=== PATIENT | female | born 1960 | race Caucasian/White ===

== ENCOUNTER 2016-06-16 13:53 | Emergency (ER) | payer OTHER ==
[2016-06-16 14:16] VITALS: RESP 16
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
[2016-06-16 16:55] VITALS: BP 147/79; PULSE 80; TEMP 98.1; O2SAT 97
== END 2016-06-16 17:00 | disposition home or self-care (01) ==
LOC: CED 13:53
DX: S09.90XA Unspecified injury of head, initial encounter (principal); F07.81 Postconcussional syndrome; W22.8XXA Striking against or struck by other objects, initial encounter; Z87.891 Personal history of nicotine dependence; Y92.015 Private garage of single-family (private) house as the place of occurrence of the external cause
CPT/HCPCS: 70450-PO; 72125-PO; 99215-PO; G0463-PO

== ENCOUNTER 2016-08-29 18:55 | Emergency (ER) | payer OTHER ==
[2016-08-29 19:05] VITALS: BP 160/73; PULSE 116; RESP 16; TEMP 99.7; O2SAT 94
[2016-08-29] MEDS ORDERED: FAMOTIDINE 20 MG TAB PO ONE (20:29)
[2016-08-29] MEDS ORDERED: OSELTAMIVIR PHOSPHATE 75 MG CAP PO ONE (20:29)
[2016-08-29] MEDS ORDERED: HYDROCODONE/APAP 5/325 TAB PO ONE (20:33)
[2016-08-29] MEDS ORDERED: HYDROCOD/APAP 5/325 PREPACK#6 BTL TAKEHOME ONE (20:33)
--- NOTE | 2016-08-29 20:33 | UCPHY ---
H & P Time Seen by Provider: 08/29/16 20:15 Patient Type: Established HPI/ROS: HPI Flu-like symptoms. 55-year-old female by private vehicle with her . This patient complains of flu-like symptoms which include nasal congestion, dry intermittent cough, muscle aches and joint aches, fever, sore throat, intermittent dull gradual onset headache. Ongoing for 2 weeks now. She has seen her primary care physician twice over the span of time for this complaint. Most recently today. She has not been on Tamiflu. She was prescribed azithromycin this morning. A chest x-ray was not done. She is on clear as to why the azithromycin was prescribed. She presents to the urgent care [facility] complaining of continued symptoms. She also reports that she has had some heartburn which she describes as a dull ache in her epigastric area. She reports that this is better at the time of Urgent Care evaluation. ROS: Constitutional: As above, no chills. No weakness. Eyes: No discharge. No changes in vision. ENT: As. Respiratory: As above. No shortness of breath. Cardiac: No chest pain, no palpitations. Gastrointestinal: As above, no vomiting, no diarrhea. Genitourinary: No hematuria. No dysuria or increased frequency with urination. Musculoskeletal: As above Skin: No rashes. Neurological: No focal weakness or altered sensation. Past medical history: Bipolar, cholecystectomy, gastric bypass, orthopedic surgeries. Primary care physician is in this building. Social history: Nonsmoker. Here with her . Physical Exam: General Appearance: Alert, no distress. This patient is responding to questions appropriately and in full sentences. This patient appears well- hydrated and well-nourished. Eyes: Pupils equal and round no pallor or injection. No lid edema, erythema or injection. ENT, Mouth: Mucous membranes are moist. The pharyngeal tissues are unremarkable. No edema or swelling. No asymmetry suggestive of abscess. No erythema or exudates. Respiratory: There are no retractions, lungs are clear to auscultation with good air movement bilaterally. Cardiovascular: Regular rate and rhythm. No murmur. Gastrointestinal: Abdomen is soft and nontender on palpation, no masses, bowel sounds normal. No focal tenderness at McBurney's point. No James sign. Neurological: Motor sensory function is grossly intact. Cranial nerves are normal. Gait is normal. Skin: Warm and dry, no rashes. Musculoskeletal: Neck is supple and nontender. Extremities are symmetrical. All joints range without pain or impingement. Psychiatric: No agitation. No depression. Database: EKG: Imaging: Procedures: Emergency department course: Vital signs reviewed. She was borderline febrile and mildly tachycardic in triage. After my evaluation she was given 2 Vicodin, 20 mg of Pepcid and Tamiflu 75 mg. I discussed the indications for Tamiflu. She is well outside the window regarding her onset of symptoms. However her presentation is classic influenza. I discussed potential side effects of Tamiflu as well as the possible what unlikely benefits of this medication, she felt strongly about trying this medication. I do not see a reason for her to continue azithromycin so I told her to discontinue this antibiotic. I discussed placing an IV in doing blood work. She does not want this done at this time. She wants to go home with the above medications. Plan will be to have her return to the Urgent Care tomorrow when I am again working for re-evaluation. Immediate return to emergency department precautions reviewed with her. All of her questions were answered. She was discharged in good condition with her . Differential Diagnosis: The differential diagnosis on this patient includes but is not limited to influenza, viral syndrome. Bowel obstruction, other surgical etiology of abdominal pain, serious bacterial infection unlikely. This represents a partial list of diagnoses considered. These considerations are based on history , physical exam, past history, reassessment and diagnostic testing. Smoking Status: Former smoker Constitutional: Initial Vital Signs Temperature (C) 37.6 C 08/29/16 19:01 Heart Rate 116 H 08/29/16 19:01 Respiratory Rate 16 08/29/16 19:01 Blood Pressure 160/73 H 08/29/16 19:01 O2 Sat (%) 94 08/29/16 19:01 O2 Delivery Mode Room Air Allergies/Adverse Reactions: amoxicillin trihydrate [From Augmentin] Allergy (Severe, Verified 08/29/16 19:05 ) Swelling/neck,face,throat eluxadoline [From Viberzi] Allergy (Severe, Verified 08/29/16 19:05) pancreatitis potassium clavula *RETIRED-02/22/12 [From Augmentin] Allergy (Unknown, Verified 08/29/16 19:05) Swelling/neck,face,throat Home Medications: Medication Instructions Recorded Aripiprazole [Abilify] 10/09/15 LORAZEPAM 10/09/15 busPIRone HCL [Buspirone HCl] 10/09/15 Estradiol [Estrace] 01/29/16 Azithromycin 08/29/16 Famotidine [Pepcid] 20 mg PO BID #14 tab 08/29/16 Oseltamivir Phosphate [Tamiflu 75 75 mg PO BID #10 cap 08/29/16 mg (RX)] Medical Decision Making - Data Points Laboratory Results: 08/29/16 19:10 Influenza Typ A,B (DFA) NEGATIVE FOR FLU (NEGATIVE) Departure - Departure Disposition: Home, Routine, Self-Care Clinical Impression: Influenza, Viral syndrome Condition: Good Instructions: Influenza (ED) Additional Instructions: Read and follow provided instructions. As discussed, return to Urgent Care tomorrow for follow-up and re-evaluation. I will be here 3:00 p.m. Take medication as prescribed. [place]/Percocet dosin-2 every 4-6 [address] for [address] not drive on this medication. Return to the emergency department immediately for worsening pain, vomiting, high fever, worsening cough or other serious concerns. Referrals: Joy Combs MD [Primary Care Provider] - As per Instructions Prescriptions: Famotidine [Pepcid] 20 mg PO BID #14 tab Oseltamivir Phosphate [Tamiflu 75 mg (RX)] 75 mg PO BID #10 cap - PQRS PQRS Measurement: 134: Depression screening and followup, PRIME MD-PHQ2 (12 years and older) Over the last 2 weeks, how often have you been bothered by any of the following problems? 1. Feeling down, depressed, or hopeless? 2. Little interest or pleasure in doing things? Answered no to both questions. 130: Documentation of medications. Reviewed all patient medications, doses, route and frequency. 226: Do you smoke? No. 47: 65 and older: Advanced care planning. Patient designates surrogate decision maker as spouse. 51: 18 years old and older with diagnosis of COPD, spirometry performance. NA 52: 18 years old and older with COPD and symptoms of COPD or FEV1<60% predicted prescribed a B Agonist. NA
== END 2016-08-29 21:05 | disposition home or self-care (01) ==
LOC: CED 18:55
DX: R09.81 Nasal congestion (principal); R05 Cough; M79.1 Myalgia; R50.9 Fever, unspecified; R07.0 Pain in throat; R51 Headache; R12 Heartburn; Z98.84 Bariatric surgery status; F31.9 Bipolar disorder, unspecified; Z87.891 Personal history of nicotine dependence
CPT/HCPCS: 87400-PO; 99214-PO; G0463-PO

== ENCOUNTER 2016-08-30 14:57 | Emergency (ER) | payer OTHER ==
[2016-08-30 15:12] VITALS: BP 153/77; PULSE 85; RESP 18; TEMP 98; O2SAT 97
[2016-08-30] MEDS ORDERED: NS 1,000 ML IV ONE (15:56)
[2016-08-30 16:20] LABS: % IMMATURE GRANULYOCYTES 0.6 % (0.0-1.1); ABSOLUTE IMMATURE GRANULOCYTES 0.06 10^3/uL (0.00-0.10); ADD DIFF? NO; ADD MORPH? NO; ADD SCAN? NO; ATYPICAL LYMPHOCYTE FLAG 10 (0-99); FRAGMENT RBC FLAG 0 (0-99); HEMATOCRIT 33.6 % (38.0-47.0); HEMOGLOBIN 11.3 g/dL (12.6-16.3); LEFT SHIFT FLG 0 (0-99); LIPEMIA HEMOLYSIS FLAG 80 (0-99); MEAN CELL HEMOGLOBIN 32.6 pg (27.9-34.1); MEAN CELL HEMOGLOBIN CONCENTR. 33.6 g/dL (32.4-36.7); MEAN CELL VOLUME 96.8 fL (81.5-99.8); PLATELET CLUMPS FLAG 0 (0-99); PLATELET COUNT 197 10^3/uL (150-400); RED BLOOD CELL COUNT 3.47 10^6/uL (4.18-5.33); RED CELL DISTRIBUTION WIDTH 12.4 % (11.5-15.2)
[2016-08-30] MEDS ORDERED: ONDANSETRON 4 MG/2 ML VIAL IVP ONE (16:21)
[2016-08-30] MEDS ORDERED: HYDROmorphONE/DILAUDID 1 MG/ML SYR IVP ONE ×2 (16:21→18:28)
[2016-08-30] MEDS ORDERED: FAMOTIDINE 20 MG in NS 100 ML IV ONE (16:21)
--- NOTE | 2016-08-30 16:26 | UCPHY ---
H & P Time Seen by Provider: 08/30/16 15:55 Patient Type: Established HPI/ROS: HPI Abdominal pain. 55 year old female by private vehicle. I saw this patient at the urgent care yesterday for flu-like symptoms in some epigastric discomfort. Plan was to have her return to the emergency department if she had continued symptoms. She returns this afternoon with complaint of right mid to right upper quadrant abdominal pain which she reports has been constant since this morning. She has had nausea but no vomiting. She last ate at 11:30 a.m.. She reports that she has not had a bowel movement in 2-3 days. She reports her flu symptoms which included muscle aches and joint aches, nasal congestion, dry cough and mild sore throat are much better now. I did start her on Tamiflu yesterday. ROS: Constitutional: No fever, no chills. No weakness. Eyes: No discharge. No changes in vision. ENT: No sore throat. No nasal congestion or rhinorrhea. Respiratory: No cough. No shortness of breath. Cardiac: No chest pain, no palpitations. Gastrointestinal: As above, no vomiting, no diarrhea. Genitourinary: No hematuria. No dysuria or increased frequency with urination. Musculoskeletal: No back pain. No neck pain. No myalgias or arthralgias. Skin: No rashes. Neurological: No headache. No focal weakness or altered sensation. Past medical history: Bipolar, gastric bypass, cholecystectomy, orthopedic surgeries. Social history: Here by herself. Nonsmoker. Physical Exam: General Appearance: Alert, no distress. This patient is responding to questions appropriately and in full sentences. This patient appears well- hydrated and well-nourished. Eyes: Pupils equal and round no pallor or injection. No lid edema, erythema or injection. Respiratory: There are no retractions, lungs are clear to auscultation with good air movement bilaterally. Cardiovascular: Regular rate and rhythm. No murmur. Gastrointestinal: Abdomen is soft with vague mid and right upper quadrant tenderness on palpation, no masses, bowel sounds normal. No focal tenderness at McBurney's point. No James sign. Neurological: Motor sensory function is grossly intact. Cranial nerves are normal. Gait is normal. Skin: Warm and dry, no rashes. Musculoskeletal: Neck is supple and nontender. No CVA tenderness bilaterally. Extremities are symmetrical. All joints range without pain or impingement. Psychiatric: No agitation. No depression. Database: EKG: Imaging: CT of the abdomen and pelvis with IV contrast; prior gastric bypass surgery without complication, finding suggestive of right pyelonephritis, biliary ductal dilatation status post cholecystectomy. Results were discussed with staff radiologist. Procedures: Emergency department course: IV was placed. She was placed on a rn cardiac. She was started on IV normal saline with 500 cc to be given over the next hour. Her vital signs have been reviewed. She will be given 20 mg of IV Pepcid, 0.5 mg of IV hydromorphone and 4 mg of IV Zofran initially. Secondary to her history of gastric bypass surgery I discussed CT imaging with her. She consented. 7:00 p.m., patient re-evaluated. She is resting comfortably at this time. Results of her CT scan and blood work and urinalysis were discussed with her. She feels comfortable going home and I feel she is safe for discharge with follow-up. I explained my concern about some inflammatory changes regarding her right kidney. She does not have any CVA tenderness on re-examination. Repeat abdominal exam she is soft, nontender nondistended. Urinalysis does not indicate infection. We will culture her urine of course. I do not feel that antibiotics are warranted at this time. Plan will be to have her follow-up on Wednesday with her primary care physician for re-evaluation. She is comfortable with this plan. I am also concerned about her anemia which appears to be new. She has not had any rectal bleeding. I will have her CBC rechecked on follow- up as well. Return to emergency department precautions reviewed with her. All of her questions were answered. She was discharged in good condition. Differential Diagnosis: The differential diagnosis on this patient includes but is not limited to constipation, hepatitis, pancreatitis, colitis, postsurgical complication. This represents a partial list of diagnoses considered. These considerations are based on history, physical exam, past history, reassessment and diagnostic testing. Smoking Status: Former smoker Constitutional: Initial Vital Signs Temperature (C) 36.6 C 08/30/16 15:09 Heart Rate 85 08/30/16 15:09 Respiratory Rate 18 08/30/16 15:09 Blood Pressure 153/77 H 08/30/16 15:09 O2 Sat (%) 97 08/30/16 15:09 O2 Delivery Mode Room Air Allergies/Adverse Reactions: amoxicillin trihydrate [From Augmentin] Allergy (Severe, Verified 08/29/16 19:05 ) Swelling/neck,face,throat eluxadoline [From Viberzi] Allergy (Severe, Verified 08/29/16 19:05) pancreatitis potassium clavula *RETIRED-02/22/12 [From Augmentin] Allergy (Unknown, Verified 08/29/16 19:05) Swelling/neck,face,throat Home Medications: Medication Instructions Recorded Aripiprazole [Abilify] 10/09/15 LORAZEPAM 10/09/15 busPIRone HCL [Buspirone HCl] 10/09/15 Estradiol [Estrace] 01/29/16 Azithromycin 08/29/16 Famotidine [Pepcid] 20 mg PO BID #14 tab 08/29/16 Oseltamivir Phosphate [Tamiflu 75 75 mg PO BID #10 cap 08/29/16 mg (RX)] Medical Decision Making - Data Points Laboratory Results: Laboratory Results 08/30/16 16:09 08/30/16 16:09 Medications Given: Discontinued Medications Hydromorphone HCl (Dilaudid) 0.5 mg IVP EDNOW ONE Stop: 08/30/16 16:22 Last Admin: 08/30/16 16:40 Dose: 0.5 mg Hydromorphone HCl (Dilaudid) 0.5 mg IVP EDNOW ONE Stop: 08/30/16 18:29 Last Admin: 08/30/16 18:40 Dose: 0.5 mg Sodium Chloride (Ns) 1,000 mls @ 0 mls/hr IV ONCE ONE PRN Reason: Wide Open Stop: 08/30/16 15:57 Last Admin: 08/30/16 16:40 Dose: 500 mls Famotidine 20 mg/ Sodium (Chloride) 102 mls @ 408 mls/hr IV EDNOW ONE Stop: 08/30/16 16:35 Last Admin: 08/30/16 16:40 Dose: 102 mls Ondansetron HCl (Zofran) 4 mg IVP EDNOW ONE Stop: 08/30/16 16:22 Last Admin: 08/30/16 16:40 Dose: 4 mg Departure - Departure Disposition: Home, Routine, Self-Care Clinical Impression: Abdominal pain, Anemia Condition: Good Instructions: Abdominal Pain (ED), Anemia (ED) Additional Instructions: Read and follow provided instructions. Follow-up with your primary care physician on Wednesday as discussed for re- evaluation. I want your blood drawn again at this time and your blood counts repeated repeated at this time. Your primary care physician should have access to your blood work that was done today. You should also have your urine culture results followed up by your primary care physician. The should be available on Wednesday. Return to the emergency department for worsening pain, weakness, fever or other serious concerns. Referrals: Joy Combs MD [Primary Care Provider] - As per Instructions - PQRS PQRS Measurement: Not applicable.
[2016-08-30 16:34] LABS: ANION GAP 16 mEq/L (8-16); CALCIUM 8.7 mg/dL (8.5-10.4); CARBON DIOXIDE 25 mEq/l (22-31); CHLORIDE 101 mEq/L (97-110); CREATININE 0.6 mg/dL (0.6-1.0); GLOMERULAR FILTRATION RATE > 60; GLUCOSE 103 mg/dL (70-100); POTASSIUM 3.9 mEq/L (3.5-5.2); SODIUM 142 mEq/L (134-144)
[2016-08-30] MEDS ORDERED: IOPAMIDOL (ISOVUE-300) 100 ML BTL IV ONE (16:41)
[2016-08-30 16:47] LABS: ALBUMIN 3.7 g/dL (3.5-5.0); BILIRUBIN,TOTAL 0.5 mg/dL (0.1-1.4); BILIRUBIN-CONJUGATED 0.3 mg/dL (0.0-0.5); BILIRUBIN-UNCONJUGATED 0.2 mg/dL (0.0-1.1); TOTAL PROTEIN 6.9 g/dL (6.3-8.2)
[2016-08-30 17:42] LABS: COLOR YELLOW; LEUKOCYTE ESTERASE,URINE NEGATIVE (NEGATIVE); NITRITE,URINE NEGATIVE (NEGATIVE)
[2016-08-30 17:55] LABS: BACTERIA 1+ /hpf (NONE SEEN); MUCUS TRACE /lpf (NONE-1+)
== END 2016-08-30 19:21 | disposition home or self-care (01) ==
LOC: CED 14:57
DX: R10.11 Right upper quadrant pain (principal); R11.0 Nausea; Z98.84 Bariatric surgery status; Z90.49 Acquired absence of other specified parts of digestive tract; Z87.891 Personal history of nicotine dependence
CPT/HCPCS: 74177-PO; 80048-PO; 80076-PO; 81003-PO; 81015-PO; 81025-PO; 83690-PO; 85025-PO; 96361-PO; 96365-PO; 96375-PO; 96376-PO; G0463-PO; J1170; J2405; Q9967

== ENCOUNTER 2017-02-08 10:46 | Emergency (ER) | payer OTHER ==
[2017-02-08 10:58] VITALS: TEMP 98.2
--- NOTE | 2017-02-08 11:17 | CPEKG ---
Heart Rate: 86 RR Interval: 698 P-R Interval: 140 QRSD Interval: 92 QT Interval: 380 QTC Interval: 455 P Crockett: 75 QRS Crockett: 70 T Wave Crockett: 30 EKG Severity - OTHERWISE NORMAL ECG - EKG Impression: SINUS RHYTHM EKG Impression: MINIMAL ST DEPRESSION, LATERAL LEADS Electronically Signed By: Ochoa Arellano 08-Feb-2017 13:24:38
[2017-02-08] MEDS ORDERED: NS 1,000 ML IV ONE (11:22)
[2017-02-08 11:27] LABS: % IMMATURE GRANULYOCYTES 0.4 % (0.0-1.1); ABSOLUTE IMMATURE GRANULOCYTES 0.02 10^3/uL (0.00-0.10); ADD DIFF? NO; ADD MORPH? NO; ADD SCAN? NO; ATYPICAL LYMPHOCYTE FLAG 0 (0-99); FRAGMENT RBC FLAG 0 (0-99); HEMOGLOBIN 13.4 g/dL (12.6-16.3); LEFT SHIFT FLG 0 (0-99); LIPEMIA HEMOLYSIS FLAG 90 (0-99); MEAN CELL HEMOGLOBIN 33.7 pg (27.9-34.1); MEAN CELL HEMOGLOBIN CONCENTR. 34.4 g/dL (32.4-36.7); MEAN PLATELET VOLUME 8.8 fL (8.7-11.7); PLATELET CLUMPS FLAG 0 (0-99); PLATELET COUNT 303 10^3/uL (150-400); RED BLOOD CELL COUNT 3.98 10^6/uL (4.18-5.33); RED CELL DISTRIBUTION WIDTH 11.6 % (11.5-15.2)
--- NOTE | 2017-02-08 11:41 | EDPHY ---
H & P Time Seen by Provider: 02/08/17 11:40 HPI/ROS: Chief complaint. Shortness of breath, chest pain HPI. 56-year-old female presents emergency department with complaint of shortness of breath for 1 week. He she has central chest discomfort which she describes as a dull ache that radiates through to her back for the past 4 days. She has some right groin pain without swelling also for about 4 days. Her chest discomfort is worse with deep breathing. Her right groin is worse with movement. No recent travel. No fever cough. Her symptoms are present at rest and not really exacerbated by exertion. Again present with deep breathing. She has had similar symptoms previously secondary to anemia. About 1 year ago she had an abnormal stress test that lead to heart catheterization that she reports as normal. ROS Constitutional. no fever/chills, no weakness Eyes. no problems with vision ENT. no sore throat, no nasal drainage Cardiovascular. Chest discomfort Respiratory. Shortness of breath Abdominal. no abdominal pain, no nausea/vomiting, no diarrhea . no problems urinating MS. right groin pain without swelling Skin. no rash Lymph. no swollen glands Neuro. no headache, no dizziness, no difficulty walking or with speech Past Medical/Surgical History: Past medical history gastric bypass, cholecystectomy, bipolar illness Social History: , nonsmoker, no alcohol Smoking Status: Former smoker Physical Exam: General Appearance: Alert well-developed female mild distress vital signs are stable Eyes: Pupils equal and round no pallor or injection. ENT, Mouth: Mucous membranes are moist. Respiratory: There are no retractions, lungs are clear to auscultation. Cardiovascular: Regular rate and rhythm. Gastrointestinal: Abdomen is soft and nontender, no masses, bowel sounds normal. Neurological: Awake and alert, sensory and motor exams grossly normal. Skin: Warm and dry, no rashes. Musculoskeletal: Neck is supple nontender. Extremities symmetrical, full range of motion. Mild tenderness to the right groin without swelling. She states she has a little bit of pain to the lateral thigh which is maybe slightly tender to palpation again without surface findings. No tenderness to the medial thigh and no calf pain or swelling Psychiatric: Patient is oriented X 3, there is no agitation. Constitutional: Initial Vital Signs Temperature (C) 36.8 C 02/08/17 10:55 Heart Rate 84 02/08/17 10:55 Respiratory Rate 18 02/08/17 10:55 Blood Pressure 128/93 H 02/08/17 10:55 O2 Sat (%) 99 02/08/17 10:55 O2 Delivery Mode Room Air Allergies/Adverse Reactions: amoxicillin trihydrate [From Augmentin] Allergy (Severe, Verified 02/08/17 10:59 ) Swelling/neck,face,throat eluxadoline [From Viberzi] Allergy (Severe, Verified 02/08/17 10:59) pancreatitis potassium clavula *RETIRED-02/22/12 [From Augmentin] Allergy (Unknown, Verified 02/08/17 10:59) Swelling/neck,face,throat Home Medications: Medication Instructions Recorded Aripiprazole [Abilify] 10/09/15 LORAZEPAM 10/09/15 busPIRone HCL [Buspirone HCl] 10/09/15 Estradiol [Estrace] 01/29/16 Cyclobenzaprine 02/08/17 Tegretol 02/08/17 traMADol 02/08/17 Medical Decision Making - Diagnostics EKG Interpretation: EKG interpreted by me shows normal sinus rhythm normal interval and axis. QRS is normal there is slight lateral ST depression in lead V6. Otherwise no significant ST elevation. No arrhythmia. The rate is 86 Imaging Results: Imaging Impressions Chest X-Ray 02/08/17 11:22 Impression: Shallow inspiration, chest negative for acute cardiopulmonary abnormality. Chest x-ray interpreted by me is normal Procedures: IV normal saline, monitor Review of old records shows the patient had an echocardiogram September 2015 for concern for Takotsubo cardiomyopathy. It did show some diastolic dysfunction. She had an abnormal stress test with EKG changes and chest discomfort in 2016 In September 2015 she had a heart catheterization which showed normal wall motion and no evidence for coronary artery disease She subsequently had a CT with IV contrast of the abdomen and pelvis in October 2015 which was normal. She had a CT pulmonary angiogram in October 2015 which was also normal ED Course/Re-evaluation: Re-evaluation at 1:20 p.m.. Patient is stable. The patient and I discussed EKG , lab, imaging study results we discussed treatment plan. I recommended admission for this patient however she wishes to be treated as an outpatient. She and I discussed treatment plan including criteria for return and importance of follow-up and further evaluation. She expresses understanding and agreement Differential Diagnosis: I do not have an explanation for patient's symptoms. I have considered pneumonia and pulmonary embolus. I have considered acute coronary syndrome. She has had previous similar symptoms with extensive workup and normal heart catheterization. - Data Points Laboratory Results: Laboratory Results 02/08/17 11:15 02/08/17 11:15 02/08/17 02/08/17 02/08/17 11:15 11:15 11:15 WBC 5.23 10^3/uL 10^3/uL (3.80-9.50) RBC 3.98 10^6/uL L 10^6/uL (4.18-5.33) Hgb 13.4 g/dL g/dL (12.6-16.3) Hct 39.0 % % (38.0-47.0) MCV 98.0 fL fL (81.5-99.8) MCH 33.7 pg pg (27.9-34.1) MCHC 34.4 g/dL g/dL (32.4-36.7) RDW 11.6 % % (11.5-15.2) Plt Count 303 10^3/uL 10^3/uL (150-400) MPV 8.8 fL fL (8.7-11.7) Neut % (Auto) 47.0 % % (39.3-74.2) Lymph % (Auto) 45.9 % H % (15.0-45.0) [place] % (Auto) 5.0 % % (4.5-13.0) Eos % (Auto) 1.1 % % (0.6-7.6) Baso % (Auto) 0.6 % % (0.3-1.7) Nucleat RBC Rel Count 0.0 % % (0.0-0.2) Absolute Neuts (auto) 2.46 10^3/uL 10^3/uL (1.70-6.50) Absolute Lymphs (auto) 2.40 10^3/uL 10^3/uL (1.00-3.00) Absolute Monos (auto) 0.26 10^3/uL L 10^3/uL (0.30-0.80) Absolute Eos (auto) 0.06 10^3/uL 10^3/uL (0.03-0.40) Absolute Basos (auto) 0.03 10^3/uL 10^3/uL (0.02-0.10) Absolute Nucleated RBC 0.00 10^3/uL 10^3/uL (0-0.01) Immature Gran % 0.4 % % (0.0-1.1) Immature Gran # 0.02 10^3/uL 10^3/uL (0.00-0.10) D-Dimer < 0.27 ug/mLFEU ug/mLFEU (0.00-0.50) Sodium 142 mEq/L mEq/L (134-144) Potassium 4.1 mEq/L mEq/L (3.5-5.2) Chloride 104 mEq/L mEq/L (97-110) Carbon Dioxide 27 mEq/l mEq/l (22-31) Anion Gap 11 mEq/L mEq/L (8-16) BUN 14 mg/dL mg/dL (7-23) Creatinine 0.7 mg/dL mg/dL (0.6-1.0) Estimated GFR > 60 Glucose 99 mg/dL mg/dL (70-100) Calcium 9.5 mg/dL mg/dL (8.5-10.4) Troponin I < 0.012 ng/mL ng/mL (0.000-0.034) Medications Given: Discontinued Medications Sodium Chloride (Ns) 1,000 mls @ 0 mls/hr IV ONCE ONE; Wide Open PRN Reason: Protocol Stop: 02/08/17 11:23 Last Admin: 02/08/17 11:38 Dose: 1,000 mls Departure - Departure Disposition: Home, Routine, Self-Care Clinical Impression: Chest pain Qualifiers: Chest pain type: unspecified Qualified Code(s): R07.9 - Chest pain, unspecified Condition: Fair Instructions: Chest Pain (ED) Additional Instructions: Continue regular medications. Tylenol, ibuprofen, or Toradol as needed for discomfort. Return for worsening chest discomfort or trouble breathing. Re- evaluation by Dr. wes elliott in the next 1-2 days. Referrals: Joy Combs MD [Primary Care Provider] - 1-2 days without fail
[2017-02-08 11:43] LABS: ANION GAP 11 mEq/L (8-16); CALCIUM 9.5 mg/dL (8.5-10.4); CARBON DIOXIDE 27 mEq/l (22-31); CHLORIDE 104 mEq/L (97-110); CREATININE 0.7 mg/dL (0.6-1.0); GLOMERULAR FILTRATION RATE > 60; GLUCOSE 99 mg/dL (70-100); POTASSIUM 4.1 mEq/L (3.5-5.2); SODIUM 142 mEq/L (134-144)
[2017-02-08 11:53] LABS: TROPONIN I < 0.012 ng/mL (0.000-0.034)
[2017-02-08 13:23] VITALS: BP 130/85; PULSE 77; RESP 16; O2SAT 95
== END 2017-02-08 13:44 | disposition home or self-care (01) ==
LOC: CED 10:46
DX: R07.9 Chest pain, unspecified (principal); E86.9 Volume depletion, unspecified; Z87.891 Personal history of nicotine dependence
CPT/HCPCS: 71010-PO; 80048-PO; 84484-PO; 85025-PO; 85378-PO

== ENCOUNTER → 2017-07-15 | Outpatient (CLI) | payer OTHER | LOC: FIMAGING 07:54 | PROVIDERS: ATTEND Physician Assistant | DX: R68.81 Early satiety (principal) | CPT/HCPCS: 78264; A9541 ==

== ENCOUNTER 2017-10-29 12:46 | Emergency (ER) | payer OTHER ==
[2017-10-29] MEDS ORDERED: ASPIRIN 81 MG CHEWABLE TAB PO ONE (13:01)
[2017-10-29] MEDS ORDERED: NITROGLYCERIN 0.4 MG BTL SL ONE (13:01)
--- NOTE | 2017-10-29 13:05 | CPEKG ---
Heart Rate: 80 RR Interval: 750 P-R Interval: 144 QRSD Interval: 96 QT Interval: 376 QTC Interval: 434 P Justin: 70 QRS Justin: 65 T Wave Justin: 20 EKG Severity - NORMAL ECG - EKG Impression: SINUS RHYTHM Electronically Signed By: Radha Price 30-Oct-2017 14:42:01
--- NOTE | 2017-10-29 13:19 | EDPHY ---
H & P Time Seen by Provider: 10/29/17 13:05 HPI/ROS: CHIEF COMPLAINT: Chest pain History by patient HISTORY OF PRESENT ILLNESS: 57-year-old woman presents complaining of which she describes as chest "discomfort"which she says she is not able to describe in any further detail. She denies a pressure like pain. The symptoms have been going on for over 4 weeks and are intermittent lasting up to 10 min at a time. They sometimes are worsened by exertion but can also occur at rest. They do not wake her from sleep. She has seen her wrapper layer and examiner soft work for the symptoms and he scheduled an outpatient stress test which had a nonspecific abnormality prompting him to schedule her for a nuclear stress test next week. Patient has had similar symptoms in the past which he has had an extensive workup including a normal angiogram in September of 2015. Patient does some get some sort breath, particularly with exertion. She has occasional nausea. She denies any fever, chills or cough. She has some ongoing diarrhea which is also been an intermittent chronic problem for her. She has some ongoing left leg pain which is poorly localized, not associated any trauma, and worse when she walks. It is not associated with any swelling. She does not any aspirin. She quit smoking 14 years ago. Her wrapper layer and examiner soft work put her on metoprolol and and, Imdur but she could not tolerate either 1 of them. Family history of cardiac diseases is unknown. She has no diabetes. She had a recent normal thyroid test. REVIEW OF SYSTEMS: As in HPI, and all other systems reviewed and are negative - Personal History Tetanus Vaccine Date: 02/2014 - Medical/Surgical History Hx Asthma: No Hx Chronic Respiratory Disease: No Hx Diabetes: No Hx Cardiac Disease: No Hx Renal Disease: No Hx Cirrhosis: No Hx Alcoholism: No Hx HIV/AIDS: No Hx Splenectomy or Spleen Trauma: No Other PMH: Surg : eye , neck , back ,gastric bypass, GB surg,ortho. Bipolar - Social History Smoking Status: Former smoker - Physical Exam Exam: General Appearance: Alert, somewhat flat affect but nontoxic-appearing. Head: normocephalic, atraumatic Eyes: Pupils equal and round, reactive to light, no pallor or injection. Mouth: Mucous membranes moist. Respiratory: Normal, effort, lungs are clear to auscultation. No wheezes, rales or rhonchi. Cardiovascular: Regular rate and rhythm. S1, S2, no murmurs, gallops or rubs appreciated Gastrointestinal: Abdomen is soft and nontender, no masses, bowel sounds normal. Back: No CVA tenderness, no bony tenderness Neurological: Awake, alert and oriented x 3, no pronator drift, normal gait, no pronator drift Skin: Warm and dry, no rashes. Musculoskeletal: No deformities or tenderness. Extremities: full range of motion, no edema, DP2+ bilat no tenderness Psychiatric: Patient has normal affect, there is no agitation. Constitutional: Initial Vital Signs Heart Rate 82 10/29/17 13:00 Respiratory Rate 15 10/29/17 13:00 Blood Pressure 152/81 H 10/29/17 13:00 O2 Sat (%) 98 10/29/17 13:00 O2 Delivery Mode Room Air Allergies/Adverse Reactions: amoxicillin trihydrate [From Augmentin] Allergy (Severe, Verified 10/29/17 13:09 ) Swelling/neck,face,throat eluxadoline [From Viberzi] Allergy (Severe, Verified 10/29/17 13:09) pancreatitis potassium clavula *RETIRED-02/22/12 [From Augmentin] Allergy (Unknown, Verified 10/29/17 13:09) Swelling/neck,face,throat Home Medications: Medication Instructions Recorded Aripiprazole [Abilify] 10/09/15 LORAZEPAM 10/09/15 busPIRone HCL [Buspirone HCl] 10/09/15 Estradiol [Estrace] 01/29/16 Tegretol 02/08/17 Medical Decision Making - Diagnostics EKG Interpretation: Normal sinus rhythm a rate 80 with normal axis, normal intervals and no acute ST changes and when compared with prior ECG of January 2017 there is minimal change. Impression: Normal EKG Imaging Results: Imaging Impressions Chest X-Ray 10/29/17 13:32 Impression: No active cardiopulmonary disease seen.. ED Course/Re-evaluation: 57-year-old woman with ongoing chest pain which has been intermittent for the last several weeks and similar to previous episodes in the past for which he has had an extensive workup. I reviewed her old records including normal cardiac angiogram in September of 2015. Patient has no cardiac risk factors other than her age and remote history of smoking. EKG is normal. Chest x-ray is unremarkable. Labs are unremarkable except for slightly low hemoglobin, however the patient has a history of chronic iron deficiency anemia and this is similar if not better than it has been in the past. A D-dimer is negative, essentially ruling out pulmonary embolism in a patient with a low pretest probability such as this 1. Patient had normal CT angiogram of the chest within the past 2 years. Patient declined any intervention for her symptoms which were not well specified. At this point there is no evidence of acute coronary syndrome or other emergent cardiopulmonary condition. I recommend she follow up with primary care physician and her wrapper layer and examiner soft work. - Data Points Laboratory Results: Laboratory Results 10/29/17 13:39 10/29/17 13:39 10/29/17 10/29/17 10/29/17 13:39 13:39 13:39 WBC 6.34 10^3/uL 10^3/uL (3.80-9.50) RBC 3.69 10^6/uL L 10^6/uL (4.18-5.33) Hgb 11.9 g/dL L g/dL (12.6-16.3) Hct 34.7 % L % (38.0-47.0) MCV 94.0 fL fL (81.5-99.8) MCH 32.2 pg pg (27.9-34.1) MCHC 34.3 g/dL g/dL (32.4-36.7) RDW 12.1 % % (11.5-15.2) Plt Count 270 10^3/uL 10^3/uL (150-400) MPV 8.8 fL fL (8.7-11.7) Neut % (Auto) 59.7 % % (39.3-74.2) Lymph % (Auto) 33.6 % % (15.0-45.0) [place] % (Auto) 4.4 % L % (4.5-13.0) Eos % (Auto) 1.6 % % (0.6-7.6) Baso % (Auto) 0.5 % % (0.3-1.7) Nucleat RBC Rel Count 0.0 % % (0.0-0.2) Absolute Neuts (auto) 3.79 10^3/uL 10^3/uL (1.70-6.50) Absolute Lymphs (auto) 2.13 10^3/uL 10^3/uL (1.00-3.00) Absolute Monos (auto) 0.28 10^3/uL L 10^3/uL (0.30-0.80) Absolute Eos (auto) 0.10 10^3/uL 10^3/uL (0.03-0.40) Absolute Basos (auto) 0.03 10^3/uL 10^3/uL (0.02-0.10) Absolute Nucleated RBC 0.00 10^3/uL 10^3/uL (0-0.01) Immature Gran % 0.2 % % (0.0-1.1) Immature Gran # 0.01 10^3/uL 10^3/uL (0.00-0.10) D-Dimer < 0.27 ug/mLFEU ug/mLFEU (0.00-0.50) Sodium 144 mEq/L mEq/L (135-145) Potassium 3.8 mEq/L mEq/L (3.3-5.0) Chloride 106 mEq/L mEq/L (97-110) Carbon Dioxide 26 mEq/l mEq/l (22-31) Anion Gap 12 mEq/L mEq/L (8-16) BUN 11 mg/dL mg/dL (7-23) Creatinine 0.7 mg/dL mg/dL (0.6-1.0) Estimated GFR > 60 Glucose 104 mg/dL H mg/dL (70-100) Calcium 9.0 mg/dL mg/dL (8.5-10.4) Troponin I < 0.012 ng/mL ng/mL (0.000-0.034) Medications Given: Discontinued Medications Aspirin (Aspirin) 324 mg PO EDNOW ONE Stop: 10/29/17 13:02 Last Admin: 10/29/17 13:05 Dose: 324 mg Nitroglycerin (Nitrostat) 0.4 mg SL EDNOW ONE Stop: 10/29/17 13:02 Last Admin: 10/29/17 13:47 Dose: Not Given Ondansetron HCl (Zofran) 4 mg IVP EDNOW ONE Stop: 10/29/17 13:52 Last Admin: 10/29/17 14:00 Dose: 4 mg Departure - Departure Disposition: Home, Routine, Self-Care Clinical Impression: Chest pain Qualifiers: Chest pain type: unspecified Qualified Code(s): R07.9 - Chest pain, unspecified Condition: Good Instructions: Chest Pain (ED) Additional Instructions: You were seen by Dr. Radha Price today. The cause of your symptoms today is unclear. We have found no emergently life threatening condition. Please follow up with her primary care physician and/or wrapper layer and examiner soft work. Return for any worsening or new concerns. Referrals: Joy Combs MD [Primary Care Provider] - As per Instructions
[2017-10-29 13:45] LABS: PLATELET COUNT 270 10^3/uL (150-400)
[2017-10-29] MEDS ORDERED: ONDANSETRON 4 MG/2 ML VIAL IVP ONE (13:51)
[2017-10-29 14:52] VITALS: BP 156/80
== END 2017-10-29 14:45 | disposition home or self-care (01) ==
LOC: CED 12:46
DX: R07.9 Chest pain, unspecified (principal); Z87.891 Personal history of nicotine dependence
CPT/HCPCS: 71046-PO; 80048-PO; 84484-PO; 96374; J2405

== ENCOUNTER 2017-11-05 07:28 | Day surgery (SDC) | payer OTHER ==
[2017-11-05] MEDS ORDERED: FAMOTIDINE 20 MG TAB PO ONE (07:31)
[2017-11-05] MEDS ORDERED: ASPIRIN EC 325 MG TAB PO ONE (07:31)
[2017-11-05] MEDS ORDERED: DIAZEPAM 5 MG TAB PO ONE (07:31)
[2017-11-05] MEDS ORDERED: NS 1,000 ML IV ONE (07:31)
[2017-11-05] MEDS ORDERED: diphenhydrAMINE 25 MG CAP PO ONE (07:31)
--- NOTE | 2017-11-05 08:00 | CPEKG ---
Heart Rate: 69 RR Interval: 870 P-R Interval: 164 QRSD Interval: 86 QT Interval: 388 QTC Interval: 416 P [place]: 57 QRS [place]: 66 T Wave [place]: 36 EKG Severity - NORMAL ECG - EKG Impression: SINUS RHYTHM Electronically Signed By: Lui Zaldivar 08-Nov-2017 10:18:15
[2017-11-05] MEDS ORDERED: LIDOCAINE 1% 300 MG/30 ML SDV ONE (08:29)
[2017-11-05] MEDS ORDERED: MIDAZOLAM 2 MG/2 ML VIAL ONE ×2 (08:29→09:32)
[2017-11-05] MEDS ORDERED: fentaNYL 100 MCG/2 ML INJ ONE ×2 (08:29→09:32)
[2017-11-05] MEDS ORDERED: IOPAMIDOL (ISOVUE-370) 150 ML BTL IV ONE (08:30)
--- NOTE | 2017-11-05 08:42 | PDPROPOC ---
Sedation Plan of Care Sedation Plan of Care: vital signs stable, mental status noted, patient educated of risks, benefits, alternatives, patient can tolerate sedation ASA Classification: ASA 2 Planned drugs: fentanyl, midazolam Mallampati Score: Class 1 Mallampati Reference Image: Patient passed 3-3-2 rule?: Yes
--- NOTE | 2017-11-05 08:42 | PDHPUP ---
History & Physical Update H&P update statement: This history and physical update is based on an assessment of the patient which was completed after admission or registration (within 24 hours), but prior to the surgery/procedure. H&P update: H&P reviewed & patient examined, no change in patient's condition since H&P completed
[2017-11-05 09:45] LABS: PLATELET COUNT 260 10^3/uL (150-400)
--- NOTE | 2017-11-05 09:52 | PDDXCAT ---
Diagnostic Cath Note - . Date: 11/05/17 Store Promoter: Slade Indication: CCC Class III and IV angina on medical treatment - Procedure Access: right groin Procedure: left heart catheterization, coronary angiography, left ventriculogram - Materials Left Heart Cath size: 6F Left Heart Cath materials: standard multipack (JL4, JR4, pigtail) - Findings-Left Heart Catheterization LM: Short vessel with bifurcation into the LAD and LCX. No luminal irregularities were noted. LAD: Medium diameter vessel with three diagonals. The third of which is likely the principal. No luminal irregularities were noted. Tortuosity was noted distally. LCX: Medium diameter vessel with a smallish OM1 and a large OM2 (principal). No luminal irregularities were noted. Distal LCX is small and diminuative RCA: Dominant vessel with a kink (hinge point) in the proximal vessel. No luminal irregularities were noted. PDA and SANDRA supply. EDP: 22 mm Hg LVEF: 65% Wall motion: normal Complications: none Estimated blood loss: <50ml Closure method: manual pressure (the arterial access was high, as well as the bifurcation - manual pressure) Assessment: Patient is a 57 y/o female with complaints of chest pains - strongly suggestive of ischaemia - by ETT two days ago. Given the symptoms, recommendations were for angiography. No luminal irregularities were appreciated. Normal LVEF noted. Plan: Aggressive medical management. Would consider small vessel disease if continued complaints of chest pains voiced. Would also ensure the patient is seen by GI for work up of possible GI etiology for symptoms. Intervention: none Patient Problems: Problems Problem Status Onset Chest pain in adult Acute Pancreatitis Acute
[2017-11-05 09:57] LABS: INR 1.04 (0.83-1.16); PROTIME(PATIENT) 13.8 SEC (12.0-15.0)
[2017-11-05] MEDS ORDERED: ATROPINE SULFATE 1 MG/10 ML SYR IVP PRN (10:00)
[2017-11-05] MEDS ORDERED: OXYCODONE/APAP 5/325 TAB PO PRN (10:00)
[2017-11-05] MEDS ORDERED: ONDANSETRON 4 MG/2 ML VIAL IVP PRN (10:00)
[2017-11-05] MEDS ORDERED: HYDROCODONE/APAP 5/325 TAB PO PRN (10:00)
[2017-11-05] MEDS ORDERED: NITROGLYCERIN 0.4 MG BTL SL PRN (10:00)
== END 2017-11-05 16:31 | disposition home or self-care (01) ==
LOC: FCATH 07:28
PROVIDERS: ATTEND Internal Medicine Cardiovascular Disease
PROC: B2111ZZ Fluoroscopy of Multiple Coronary Arteries using Low Osmolar Contrast (ICD-10-PCS; principal; 2017-11-05)
PROC: B2151ZZ Fluoroscopy of Left Heart using Low Osmolar Contrast (ICD-10-PCS; principal; 2017-11-05)
PROC: 4A023N7 Measurement of Cardiac Sampling and Pressure, Left Heart, Percutaneous Approach (ICD-10-PCS; principal; 2017-11-05)
DX: R07.9 Chest pain, unspecified (principal); K21.9 Gastro-esophageal reflux disease without esophagitis; F31.60 Bipolar disorder, current episode mixed, unspecified; K85.90 Acute pancreatitis without necrosis or infection, unspecified; E66.9 Obesity, unspecified; J45.909 Unspecified asthma, uncomplicated; M54.12 Radiculopathy, cervical region; Z79.890 Hormone replacement therapy; Z68.36 Body mass index [BMI] 36.0-36.9, adult; Z90.89 Acquired absence of other organs
CPT/HCPCS: J1644; J2250; J3010; Q9967

== ENCOUNTER → 2018-06-29 | Outpatient (CLI) | payer OTHER | LOC: CIMAGING 09:44 | PROVIDERS: ATTEND Podiatrist Foot & Ankle Surgery | DX: S92.535A Nondisplaced fracture of distal phalanx of left lesser toe(s), initial encounter for closed fracture (principal) | CPT/HCPCS: 73660-PO ==

== ENCOUNTER → 2018-09-29 | Outpatient (CLI) | payer OTHER ==
[~2018-09-29] MED LIST: IOPAMIDOL (ISOVUE-300) 100 ML BTL ONE
== END ==
LOC: CIMAGING 13:10
PROVIDERS: ATTEND Physician Assistant
DX: R10.10 Upper abdominal pain, unspecified (principal); K83.9 Disease of biliary tract, unspecified; Z90.49 Acquired absence of other specified parts of digestive tract; Z98.84 Bariatric surgery status
CPT/HCPCS: 74160-PO; Q9967